=== PATIENT | female | born 1925 | race Caucasian/White ===

== ENCOUNTER 2016-11-06 14:13 | Emergency (ER) | payer OTHER ==
--- NOTE | 2016-11-06 15:48 | DIAGNOSTIC IMAGING REPORT ---
PROCEDURE: XR CHEST 2 VIEW INDICATION: FEVER TECHNIQUE: PA and lateral views. COMPARISON: None. FINDINGS: Left lower lobe infiltrate and effusion. Heart and mediastinum are normal. Thorax is normal. IMPRESSION: 1. Left lower infiltrate and effusion.
--- NOTE | 2016-11-06 20:41 | ED ORDER SUMMARY ---
..... Patient: KP FLORES OrderSheet [facility] VisitID: [id number] [address] [place] [address] 89y, F Registration Date/Time: 11/06/2016 ORDER SHEET Weight: 68.0 kg (estimated) Allergies: Aspirin, Azithromycin, Cephalexin, Egg/Pro, Morphine Sulfate, Penicillins, Sulfa Antibiotics GENERAL ORDERS: UA-Culture if indicated Urgent (14:37 11/06/2016 HOShaughnessy R.N. per protocol) (Ack 14:42 [facility] ER Tech1) (14:52 HOShaughnessy R.N.) Chest 2V Urgent (14:50 11/06/2016 Silvano Marques) (Ack 14:53 [facility] ER Tech1) (15:14 HOShaughnessy R.N.) CBC w Diff Urgent (14:51 11/06/2016 Silvano Marques) (Ack 14:53 [facility] ER Tech1) (15:14 HOShaughnessy R.N.) CMP Urgent (14:51 11/06/2016 Silvano Marques) (Ack 14:53 [facility] ER Tech1) (15:14 HOShaughnessy R.N.) Lactate, Serum Urgent (14:51 11/06/2016 Silvano Marques) (Ack 14:53 [facility] ER Tech1) (15:14 HOShaughnessy R.N.) Pulse oximeter (14:51 11/06/2016 Silvano Marques) (14:52 HOShaughnessy R.N.) Lactate, Serum Urgent (16:41 11/06/2016 Silvano Marques) (Ack 16:56 [facility] ER Tech1) (17:29 HOShaughnessy R.N.) Lactate, Serum Urgent (20:18 11/06/2016 Silvano Marques) (20:19 [facility] ER Tech1) MEDICATION ORDERS: Doxycycline Hyclate PO 100 mg (NOW) (16:15 11/06/2016 Silvano Marques) (18:15 EBonham) IV FLUIDS: IV NS : initial bolus 500 mL (1000 mL/hr), then none - for X1 (NOW) (14:50 11/06/2016 Silvano Marques) (15:15 Vernon Santacruz) IV NS : initial bolus 500 mL (1000 mL/hr), then none - for X1 (NOW) (17:48 11/06/2016 Silvano Marques) (18:32 Vernon Santacruz) ORDER SHEET NOTES: [Electronically signed by Florin Garvey R.N. (23:13 11/06/2016)] [Electronically signed by Rocky Hurt Dr. (03:03 11/08/2016)] [Electronically locked/signed by Florin Garvey R.N. (23:13 11/06/2016)]
--- NOTE | 2016-11-06 20:41 | ED NURSING NOTES ---
Clinical Report - [facility] [address] [place] [address] 11/06/2016 14:15 Patient: KP FLORES TRIAGE Triage time 1418 pm. Chief Complaint: FEVER and "NOT FEELING WELL" and FATIGUE. --14:19 Florin Garvey R.N. 14:18 11/06/16. BP: 170/115. HR: 83. RR: 16. O2 saturation: 90% on room air. Temp: 98.1 F (oral). --14:19 Florin Garvey R.N. 14:30 11/06/16. BP: 155/93. HR: 88. RR: 25. O2 saturation: 94% on room air. --14:34 Florin Garvey R.N. Alert. No acute distress. MIMI COMA SCORE: [place] Coma Scale: 14- eyes open spontaneously (4); best verbal response- disoriented (4); best motor response- obeys commands (6). --15:33 Florin Garvey R.N. Weight: 68 kg estimated. Height/Length: 62 inches Estimated. BMI: 27.4. --15:33 Florin Garvey R.N. Medications Tums Ultra 1000 Oral. --15:23 Florin Garvey R.N. Magnesium Oxide Oral. --15:23 Florin Garvey R.N. Potassium Chloride Oral. --15:23 Florin Garvey R.N. Atenolol Oral. --15:23 Florin Garvey R.N. Furosemide Oral. --15:23 Florin Garvey R.N. Glimepiride Oral. --15:23 Florin Garvey R.N. Lidocaine External. --15:24 Florin Garvey R.N. Lisinopril Oral. --15:24 Florin Garvey R.N. Lovastatin Oral. --15:24 Florin Garvey R.N. MetFORMIN HCl Oral. --15:25 Florin Garvey R.N. Multivitamins Oral. --15:25 Florin Garvey R.N. NIFEdipine Oral. --15:25 Florin Garvey R.N. Omeprazole Oral. --15:29 Florin Garvey R.N. Trimethoprim Oral. --15:29 Florin Garvey R.N. Vitamin B-12 Oral. --15:29 Florin Garvey R.N. Allergies Aspirin. Azithromycin. Cephalexin. Egg/Pro. --15:30 Florin Garvey R.N. Morphine Sulfate. Penicillins. Sulfa Antibiotics. --15:30 Florin Garvey R.N. History Arrived by EMS. Historian: patient. --14:19 Florin Garvey R.N. PAST MEDICAL HX: Diabetes mellitus. SOCIAL HX: Never smoker. Alcohol use. (no). History of drug use. (no). FALL RISK ASSESSMENT: Fall risk assessment completed. No fall risk identified. NUTRITIONAL RISK ASSESSMENT: The nutritional risk assessment revealed no deficiencies. FUNCTIONAL ASSESSMENT: Functional assessment: no impairments noted. LEARNING NEEDS ASSESSMENT: The learning needs assessment revealed no barriers. SKIN INTEGRITY ASSESSMENT: Skin integrity risk assessment completed. No skin integrity risk identified. --15:33 Florin Garvey R.N. PROBLEMS: Repeat Falls. Diabetes Mellitus Type 2. Chronic systolic heart failure. Changed Mental Status. UTI - Urinary Tract Infection. Hypokalemia. Prolapse uterus. Neuropathy. Hyponatremia. Hypertension. Anemia. Diabetes Mellitus. --15:32 Florin Garvey R.N. ADDITIONAL SURGERIES: Abdominal. --15:32 Florin Garvey R.N. PHYSICAL ASSESSMENT To room via stretcher. GENERAL / NEURO / PSYCH: Alert. Oriented X 4. Appears in no acute distress. She has had weakness. HEENT: Pupils equal, round and reactive to light. Mucous membranes are pink. RESPIRATORY: Respirations not labored. Chest nontender. Breath sounds within normal limits. CVS: Normal sinus rhythm noted. Capillary refill less than 2 seconds. Pulses within normal limits. GI / : Abdomen soft and nontender and normal bowel sounds. SKIN: Skin intact. Skin is warm and dry. Normal skin turgor. --15:34 Florin Garvey R.N. NURSING PROGRESS NOTES 15:14 11/06/2016 Site #1 started via IV in the right forearm with an 18g angiocath; one attempt. Blood drawn: rainbow set. Labeled in the presence of the patient and sent to the lab. --15:14 Florin Garvey R.N. 15:14 11/06/2016 Started IV Fluids IV NS (Saline); bolus of 500 mL wide open via site #1. Allergies verified and confirmed 5 rights. IV patency established. IV site checked: no pain, redness, or swelling. IV flushed thoroughly pre- and post-medication administration. --15:15 Florin Garvey R.N. ( Screams of "help" coming from patient room. Found patient out of bed standing in the middle of a pool or urine. Patient states that she needed to use the restroom badly and got out of bed to walk to the restroom. Assisted patient to the bed with the assistance of another RN. Patient instructed to use the call light when she needs to use the restroom.). --16:22 Florin Garvey R.N. ( Pt placed on the bedpan.). --16:52 Corine Caceres R.N. 18:00 11/06/16. BP: 155/68. HR: 81. RR: 16. O2 saturation: 100%. --18:01 Florin Garvey R.N. The patient is calm. Overall patient status is improved- she states feels better. --18:01 Florin Garvey R.N. 18:15 11/06/2016 DOXYCYCLINE HYCLATE PO 100 mg given. Allergies verified and confirmed 5 rights. --18:15 Windy Carrasco 18:32 11/06/2016 Started bag #1 500 mL IV Fluids IV NS (Saline); bolus of 500 mL over 1 hour(s) via site #1 via IV pump. Allergies verified and confirmed 5 rights. IV patency established. IV site checked: no pain, redness, or swelling. IV flushed thoroughly pre- and post-medication administration. --18:32 Florin Garvey R.N. The patient is calm and resting quietly. Overall patient status is improved- she states feels better. GENERAL / NEURO / PSYCH: Alert. Oriented X 4. RESPIRATORY: No respiratory distress. Breath sounds normal. GI / : Bowel sounds within normal limits. SKIN: Skin is warm and dry. --21:56 Florin Garvey R.N. 21:50 11/06/16. BP: 124/83. HR: 70. RR: 16. O2 saturation: 92%. Temp: 98.2 F. Pain level now: 0/10. --21:56 Florin Garvey R.N. DISPOSITION / DISCHARGE 22:26 11/06/2016 Site #1 removed upon discharge. Catheter intact. Pressure dressing applied. --22:26 Florin Garvey R.N. 22:26 11/06/2016 IV Fluids IV NS Discontinued: bag #1 completed. Total amount infused: 500 mL. IV patency established. IV site checked: no pain, redness, or swelling. IV flushed thoroughly. --22:26 Florin Garvey R.N. 22:26 11/06/2016 IV Fluids IV NS Discontinued: bag #2 completed. Total amount infused: 500 mL. IV patency established. IV site checked: no pain, redness, or swelling. IV flushed thoroughly. --22:26 Florin Garvey R.N. <<STRICKEN ENTRY-- The goals identified in the patient's plan of care were met. Fall risk assessment completed. Risk factors identified include patient medications, age greater than 65 years, history of fall and impairment of mobility. Fall interventions initiated. Patient placed on stretcher. The patient was discharged home and accompanied by spouse. She left the Emergency Department via private vehicle and on a stretcher. Patient driving. --22:27 Florin Garvey R.N. --END STRIKE>> Correction --22:29 Florin Garvey R.N. Departure time: 2228 PM. Transported via ambulance by EMS. ( Patient discharged to home via [facility] ambulance. Upon discharge patient alert and pleasantly confused which is her baseline. Patient respirations even and unlabored. Vital signs stable.). --22:29 Florin Garvey R.N. Departure time: 1031 PM. No learning barriers present. Ability to learn limited by poor comprehension and dementia; teaching performed. Learning barriers note: with medics who will perform teaching with . Reviewed medication(s) side effects, precautions, dosing and course information. Prescription(s) given to the roofing contractor. Reviewed fever care instructions. Written instructions provided in Romanian. Caregiver verbalized understanding (EMS). The patient was discharged home and accompanied by EMS. She left the Emergency Department via ambulance and on a stretcher. Driving (EMS). --22:31 Florin Garvey R.N. Condition at departure: improved. --23:12 Florni Garvey R.N. 22:14 11/06/16. BP: 140/60. HR: 80. RR: 16. O2 saturation: 95%. Temp: 98.1 F (oral). Pain level now: 0/10. --23:12 Florin Garvey R.N. Locked/Released at 11/06/2016 23:13 by Florin Garvey R.N.
--- NOTE | 2016-11-06 20:41 | ED CLINICAL REPORT ---
Clinical Report - Physicians/Mid Levels [facility] [address] [place] [address] 11/06/2016 14:15 Patient: KP FLORES Arrived- By ambulance. Historian- patient, EMS personnel and family. HISTORY OF PRESENT ILLNESS Chief Complaint: "NOT FEELING WELL". This started The past few days and is still present and worsening. She has had measured fever (subjective). It is not gone now. Fever (unsure). No muscle aches, chest pain or dyspnea. She has had loss of appetite, fatigue and decreased oral intake. Additional history - The patient has had contact with a sick individual. No recent hospitalization. No new medication recently administered. No history of HIV illness. No recent travel. No known exposure to an animal. Similar symptoms previously: None. Recent medical care: The patient was seen recently and hospitalized. REVIEW OF SYSTEMS No nausea or vomiting. All systems otherwise negative, except as recorded above. PAST HISTORY See nurses notes. Medications: Vitamin B-12 Oral. Trimethoprim Oral. Omeprazole Oral. NIFEdipine Oral. Multivitamins Oral. MetFORMIN HCl Oral. Lovastatin Oral. Lisinopril Oral. Lidocaine External. Glimepiride Oral. Furosemide Oral. Atenolol Oral. Potassium Chloride Oral. Magnesium Oxide Oral. Tums Ultra 1000 Oral. Allergies: Aspirin. Azithromycin. Cephalexin. Egg/Pro. Morphine Sulfate. Penicillins. Sulfa Antibiotics. SOCIAL HISTORY Never smoker. Not exposed to second-hand smoke at home. No alcohol use or drug use. No recent travel. Is a local resident. ADDITIONAL NOTES The nursing notes have been reviewed. PHYSICAL EXAM Vital Signs: 11/06/2016 14:18 BP: 170/115. HR: 83. RR: 16. O2 saturation: 90%. Temp: 98.1 F. Blood pressure normal. Oxygen saturation normal. Appearance: Alert. No acute distress. Eyes: Pupils equal, round and reactive to light. Eyes normal inspection. ENT: Ears normal. Nose normal. Pharynx normal. Uvula midline. Neck: Normal inspection. Neck supple. CVS: Normal heart rate and rhythm. Heart sounds normal. Pulses normal. Respiratory: No respiratory distress. Mild bilateral rhonchi present in the bases. Chest nontender. No rales or wheezes. Abdomen: Soft and nontender. Bowel sounds normal. No mass. Back: Normal inspection. Skin: Skin warm and dry. Normal skin color. No rash. Normal skin turgor. Extremities: Extremities exhibit normal ROM. Extremities nontender. Neuro: No motor deficit. No sensory deficit. (oriented to self and place). LABS, X-RAYS, AND EKG Chest X-ray: (PROCEDURE: XR CHEST 2 VIEW INDICATION: FEVER TECHNIQUE: PA and lateral views. COMPARISON: None. FINDINGS: Left lower lobe infiltrate and effusion. Heart and mediastinum are normal. Thorax is normal. IMPRESSION: 1. Left lower infiltrate and effusion.). Views: PA and lateral. The X-rays were independently viewed by me and interpreted by the radiologist. The X-rays were discussed with the radiologist (via pacs). Laboratory Tests: UA-Culture if indicated: (YESICA: 11/06/2016 14:29) ( [facility] 11/06/2016 15:07) Final results Test Result Flag Units (Reference) URINE COLOR YELLOW URINE APPEARANCE CLEAR URINE GLUCOSE 2+ (NEGATIVE) URINE BILIRUBIN NEGATIVE (NEGATIVE) URINE KETONE NEGATIVE (NEGATIVE) URINE SPECIFIC GRAVITY 1.010 (1.010-1.030) URINE PH 6.5 (5.0-8.0) URINE PROTEIN 1+ (NEGATIVE) URINE UROBILINOGEN 0.2 EU/dL (0.2-1.0) URINE NITRITE NEGATIVE (NEGATIVE) URINE BLOOD TRACE-LYSED (NEGATIVE) URINE LEUK ESTERASE NEGATIVE (NEGATIVE) URINE RBC 0-1 rbc/hpf (0-1) URINE WBC 5-10 wbc/hpf (0-1) URINE EPITHELIAL CELLS 1-3 EPI/hpf (0-5) URINE BACTERIA NONE SEEN (NONE SEEN) URINE COMMENT CULT NOT INDICATED URINE CULTURES ARE SET-UP BASED ON THE FOLLOWING CRITERIA:POSITIVE NITRITEPOSITIVE LEUKOCYTE ESTERASEGREATER THAN 10 WHITE BLOOD CELLSMODERATE (2+) OR GREATER BACTERIA CBC w Diff: (YESICA: 11/06/2016 15:09) ( [facility] 11/06/2016 15:31) Final results Test Result Flag Units (Reference) WHITE BLOOD COUNT 6.7 K/uL (4.5-11.5) RED BLOOD COUNT 4.63 M/uL (4.00-5.20) HEMOGLOBIN 12.0 gm/dL (12.0-16.0) HEMATOCRIT 37.4 % (36.0-46.0) MEAN CELL VOLUME 81 fL (80-100) MEAN CORPUSCULAR HGB 26 pg (26-34) MEAN CORPUSCULAR HGB CONC 32 g/dL (31-37) RED CELL DISTRIBUTION WIDTH 15.2 H % (11.6-14.8) PLATELET COUNT 287 K/uL (150-400) NEUTROPHIL % 75.8 H % (50-75) LYMPH % 13.7 L % (25-40) MONO % 6.7 % (3-14) EOSINOPHIL % 3.5 % (0-4) BASOPHIL % 0.3 % (0-2) Lactate, Serum: (YESICA: 11/06/2016 19:46) ( [facility] 11/06/2016 20:37) Final results Test Result Flag Units (Reference) LACTIC ACID 1.3 mmol/L (0.4-2.0) Lactate, Serum: (YESICA: 11/06/2016 15:00) ( [facility] 11/06/2016 17:43) Final results Test Result Flag Units (Reference) LACTIC ACID 2.1 H mmol/L (0.4-2.0) Lactate, Serum: (YESICA: 11/06/2016 15:09) ( [facility] 11/06/2016 15:46) Final results Test Result Flag Units (Reference) LACTIC ACID 2.8 H mmol/L (0.4-2.0) CMP: (YESICA: 11/06/2016 15:09) ( [facility] 11/06/2016 15:37) Final results Test Result Flag Units (Reference) GLUCOSE 267 H mg/dL (70-110) BUN 10 mg/dL (7-18) CREATININE 0.9 mg/dL (0.6-1.3) Estimated GFR >60 mL/min Estimated GFR- >60 mL/min Note: Persistent reduction over 3 months in eGFR<60 mL/min/1.73 m2 defines CKD. Patients with eGFR values>=60 mL/min/1.73 m2 may also have CKD if evidence ofpersistent proteinuria. Additional information may be foundat www.kidney.org. SODIUM 135 L mmol/L (136-145) POTASSIUM 3.9 mmol/L (3.5-5.1) CHLORIDE 96 L mmol/L (98-107) CARBON DIOXIDE 27 mmol/L (21-32) CALCIUM 8.6 mg/dL (8.5-10.1) TOTAL PROTEIN 7.5 g/dL (6.4-8.2) ALBUMIN 3.3 g/dL (3.3-5.0) BILIRUBIN, TOTAL 0.9 mg/dL (0.0-1.0) ALKALINE PHOSPHATASE 103 U/L (46-116) AST (SGOT) 9 L U/L (15-37) ALT (SGPT) 22 U/L (12-78) . PROGRESS AND PROCEDURES Course of Care: the patient is a pleasant 89-year-old female with complex past medical history presenting for evaluation of fever. The patient has recent history of decreased activity and decreased by mouth intake. Patient appears nontoxic at this time. Vital signs are otherwise unremarkable. Because the patient is over 65, will evaluate patient's current situation with urinalysis, chest x-ray, electrolytes, and Complete blood count. EMS had also reported patient with history of frequent urinary tract infections. Patient likely having change in mental status secondary to infectious etiology. We'll also be evaluating for any signs of metabolic derangement from current illness. Patient is otherwise nontoxic. Workup shows patient to haveabnormality on chest x-ray. Patient with left lower lobe pneumonia. Patient also with elevated lactic acid. The patient reports that she is feeling better. And would like to go home. The patient states that her can come to pick her up. Because the patient's lactic acid is elevated, we will recheck the lactic acid after the 500 cc of normal saline had been given. Patient likely dehydrated secondary to decreased by mouth intake. Second lactic acid is noted to be abnormal however borderline. Patient is a good outpatient candidate however would like to see resolution of the abnormal lactic acid. Was informed by nursing staff that the patient's lactic acid could only be drawn with the tourniquet up. Laboratory states that because the lactic could only be drawn with the tourniquet on, likely artificially elevated. There is concern about overloading patient with fluids however did not find any signs of fluid overload on examination. Patient has also only had 500 cc of fluid. We'll provide patient with another 500 cc of fluid and reevaluate with lactic acid. Lactic acid repeat is noted to be normal. Patient continues to be resting in bed in no acute distress. Patient is nontoxic. Vital signs are otherwise unremarkable. Patient is a good outpatient candidate. Discussed with patient and with significant other workup, diagnosis, home care, follow-up, and return precautions. All questions answered. The patient expressed understanding of these instructions and was agreeable to them. Disposition: Discharged. Condition: good. CLINICAL IMPRESSION 11/06/2016 18:00 BP: 155/68. HR: 81. RR: 16. O2 saturation: 100%. Blood pressure normal. Oxygen saturation normal. acute lactic acidosis, resolved dehydration, acute pneumonia, acute left lower lobe. INSTRUCTIONS Warnings: GENERAL WARNINGS: Return or contact your physician immediately if your condition worsens or changes unexpectedly, if not improving as expected, or if other problems arise. Specifically return if pain, vomiting, bleeding, breathing difficulty or fever. Your Current Medications: CONTINUE TAKING THE FOLLOWING MEDICATIONS: Atenolol Oral. Furosemide Oral. Glimepiride Oral. Lidocaine External. Lisinopril Oral. Lovastatin Oral. Magnesium Oxide Oral. MetFORMIN HCl Oral. Multivitamins Oral. NIFEdipine Oral. Omeprazole Oral. Potassium Chloride Oral. Trimethoprim Oral. Tums Ultra 1000 Oral. Vitamin B-12 Oral. Prescription Medications: Doxycycline 100 mg: Take 1 capsule orally every 12 hours for 10 days. No refill. (recheck today's concerns) Follow-up: Return to the emergency department as needed. Follow up with your doctor in two days. Reason for referral: recheck today's concerns. Summary of care provided to patient via paper. Screening today revealed the patient's blood pressure to be in the hypertensive range. Blood pressure screening was not performed during this visit because the patient has an active diagnosis of hypertension. The patient should follow up with a primary care provider for blood pressure management. Understanding of the discharge instructions verbalized by patient. Discharge instructions reviewed (spouse). (Electronically signed by Rocky Hurt Dr. 11/08/2016 3:03)
--- NOTE | 2016-11-06 20:41 | ED ORDER SUMMARY ---
..... Patient: KP FLORES OrderSheet [facility] VisitID: [id number] [address] [place] [address] 89y, F Registration Date/Time: 11/06/2016 ORDER SHEET Weight: 68.0 kg (estimated) Allergies: Aspirin, Azithromycin, Cephalexin, Egg/Pro, Morphine Sulfate, Penicillins, Sulfa Antibiotics GENERAL ORDERS: UA-Culture if indicated Urgent (14:37 11/06/2016 HOShaughnessy R.N. per protocol) (Ack 14:42 [facility] ER Tech1) (14:52 HOShaughnessy R.N.) Chest 2V Urgent (14:50 11/06/2016 Silvano Marques) (Ack 14:53 [facility] ER Tech1) (15:14 HOShaughnessy R.N.) CBC w Diff Urgent (14:51 11/06/2016 Silvano Marques) (Ack 14:53 [facility] ER Tech1) (15:14 HOShaughnessy R.N.) CMP Urgent (14:51 11/06/2016 Silvano Marques) (Ack 14:53 [facility] ER Tech1) (15:14 HOShaughnessy R.N.) Lactate, Serum Urgent (14:51 11/06/2016 Silvano Marques) (Ack 14:53 [facility] ER Tech1) (15:14 HOShaughnessy R.N.) Pulse oximeter (14:51 11/06/2016 Silvano Marques) (14:52 HOShaughnessy R.N.) Lactate, Serum Urgent (16:41 11/06/2016 Silvano Marques) (Ack 16:56 [facility] ER Tech1) (17:29 HOShaughnessy R.N.) Lactate, Serum Urgent (20:18 11/06/2016 Silvano Marques) (20:19 [facility] ER Tech1) MEDICATION ORDERS: Doxycycline Hyclate PO 100 mg (NOW) (16:15 11/06/2016 Silvano Marques) (18:15 EBonham) IV FLUIDS: IV NS : initial bolus 500 mL (1000 mL/hr), then none - for X1 (NOW) (14:50 11/06/2016 Silvano Marques) (15:15 Vernon Santacruz) IV NS : initial bolus 500 mL (1000 mL/hr), then none - for X1 (NOW) (17:48 11/06/2016 Silvano Marques) (18:32 Vernon Santacruz) ORDER SHEET NOTES: [Electronically signed by Florin Garvey R.N. (23:13 11/06/2016)] [Electronically signed by Rocky Hurt Dr. (03:03 11/08/2016)] [Electronically locked/signed by Florin Garvey R.N. (23:13 11/06/2016)]
--- NOTE | 2016-11-08 03:04 | ED DISCHARGE INSTRUCTIONS ---
Patient: KP FLORES General Instructions [facility] VisitID: [id number] [place] [address] 89y, F Registration Date/Time: 11/06/2016 11/06/2016 18:00 BP: 155/68. HR: 81. RR: 16. O2 saturation: 100%. Blood pressure normal. Oxygen saturation normal. acute lactic acidosis, resolved dehydration, acute pneumonia, acute left lower lobe. INSTRUCTIONS Warnings: GENERAL WARNINGS: Return or contact your physician immediately if your condition worsens or changes unexpectedly, if not improving as expected, or if other problems arise. Specifically return if pain, vomiting, bleeding, breathing difficulty or fever. Your Current Medications: CONTINUE TAKING THE FOLLOWING MEDICATIONS: Atenolol Oral. Furosemide Oral. Glimepiride Oral. Lidocaine External. Lisinopril Oral. Lovastatin Oral. Magnesium Oxide Oral. MetFORMIN HCl Oral. Multivitamins Oral. NIFEdipine Oral. Omeprazole Oral. Potassium Chloride Oral. Trimethoprim Oral. Tums Ultra 1000 Oral. Vitamin B-12 Oral. Prescription Medications: Doxycycline 100 mg: Take 1 capsule orally every 12 hours for 10 days. No refill. (recheck today's concerns) Follow-up: Return to the emergency department as needed. Follow up with your doctor in two days. Reason for referral: recheck today's concerns. Summary of care provided to patient via paper. Screening today revealed the patient's blood pressure to be in the hypertensive range. Blood pressure screening was not performed during this visit because the patient has an active diagnosis of hypertension. The patient should follow up with a primary care provider for blood pressure management. Understanding of the discharge instructions verbalized by patient. Discharge instructions reviewed (spouse). ADDITIONAL INFORMATION Doxycycline Monohydrate Oral tablet What is this medicine? DOXYCYCLINE (dox scott jason) is a tetracycline antibiotic. It kills certain bacteria or stops their growth. It is used to treat many kinds of infections, like dental, skin, respiratory, and urinary tract infections. It also treats acne, Lyme disease, malaria, and certain sexually transmitted infections. How should I use this medicine? Take this medicine by mouth with a full glass of water. Follow the directions on the prescription label. It is best to take this medicine without food, but if it upsets your stomach take it with food. Take your medicine at regular intervals. Do not take your medicine more often than directed. Take all of your medicine as directed even if you think you are better. Do not skip doses or stop your medicine early. Talk to your labor trainer regarding the use of this medicine in children. Special care may be needed. While this drug may be prescribed for children as young as 8 years old for selected conditions, precautions do apply. What side effects may I notice from receiving this medicine? Side effects that you should report to your doctor or health senior care assistant as soon as possible: allergic reactions like skin rash, itching or hives, swelling of the face, lips, or tongue difficulty breathing fever itching in the rectal or genital area pain on swallowing redness, blistering, peeling or loosening of the skin, including inside the mouth severe stomach pain or cramps unusual bleeding or bruising unusually weak or tired yellowing of the eyes or skin Side effects that usually do not require medical attention (report to your doctor or health senior care assistant if they continue or are bothersome): diarrhea loss of appetite nausea, vomiting What may interact with this medicine? antacids barbiturates control pills bismuth subsalicylate carbamazepine methoxyflurane other antibiotics phenytoin vitamins that contain iron warfarin What if I miss a dose? If you miss a dose, take it as soon as you can. If it is almost time for your next dose, take only that dose. Do not take double or extra doses. Where should I keep my medicine? Keep out of the reach of children. Store at room temperature, below 30 degrees C (86 degrees F). Protect from light. Keep container tightly closed. Throw away any unused medicine after the expiration date. Taking this medicine after the expiration date can make you seriously ill. What should I tell my health care provider before I take this medicine? They need to know if you have any of these conditions: liver disease long exposure to sunlight like working outdoors stomach problems like colitis an unusual or allergic reaction to doxycycline, tetracycline antibiotics, other medicines, foods, dyes, or preservatives or trying to get breast-feeding What should I watch for while using this medicine? Tell your doctor or health senior care assistant if your symptoms do not improve. Do not treat diarrhea with over the counter products. Contact your doctor if you have diarrhea that lasts more than 2 days or if it is severe and watery. Do not take this medicine just before going to bed. It may not dissolve properly when you lay down and can cause pain in your throat. Drink plenty of fluids while taking this medicine to also help reduce irritation in your throat. This medicine can make you more sensitive to the sun. Keep out of the sun. If you cannot avoid being in the sun, wear protective clothing and use sunscreen. Do not use sun lamps or tanning beds/booths. control pills may not work properly while you are taking this medicine. Talk to your doctor about using an extra method of control. If you are being treated for a sexually transmitted infection, avoid sexual contact until you have finished your treatment. Your sexual partner may also need treatment. Avoid antacids, aluminum, calcium, magnesium, and iron products for 4 hours before and 2 hours after taking a dose of this medicine. If you are using this medicine to prevent malaria, you should still protect yourself from contact with mosquitos. Stay in screened-in areas, use mosquito nets, keep your body covered, and use an insect repellent. You have been given the following additional information: Doxycycline Monohydrate Oral tablet (Electronically signed by Rocky Hurt Dr. 11/08/2016 3:03)
--- NOTE | 2016-11-08 03:04 | ED MAR SUMMARY ---
..... Medication Administration Record [facility] [address] [place] [address] Patient: KP FLORES Visit ID: [id number] 89y, F Weight: 68.0 kg Height/Length: 62 in BMI: 27.4 ALLERGIES: Aspirin, Azithromycin, Cephalexin, Egg/Pro, Morphine Sulfate, Penicillins, Sulfa Antibiotics Start 15:14 11/06/2016 Florin Garvey R.N., Stop 22:26 11/06/2016 Florin Garvey R.N. Medication Administered: IV NS (SALINE), Dose: IV Fluids, Bolus: 500 mL wide open, Site: #1 right forearm. Medication Ordered: IV NS : initial bolus 500 mL (1000 mL/hr), then none - for X1 (NOW). Given 18:15 11/06/2016 Windy Carrasco, Medication Administered: DOXYCYCLINE HYCLATE [PO], Dose: 100 mg PO. Medication Ordered: Doxycycline Hyclate PO 100 mg (NOW). Start 18:32 11/06/2016 Florin Garvey R.N., Stop 22:26 11/06/2016 Florin Garvey R.N. Medication Administered: IV NS (SALINE), Dose: IV Fluids, Bolus: 500 mL over 1 hour(s), Dispensed: 500 mL bag, Site: #1 right forearm. Medication Ordered: IV NS : initial bolus 500 mL (1000 mL/hr), then none - for X1 (NOW).
--- NOTE | 2016-11-08 03:04 | ED MED RECONCILIATION SUMMARY ---
Patient: KP FLORES Medication Reconciliation Report [facility] VisitID: [id number] [address] [place] [address] 89y, F Registration Date/Time: 11/06/2016 Weight: 68.0 kg Height/Length: 62 in. BMI: 27.4 ALLERGIES: Aspirin, Azithromycin, Cephalexin, Egg/Pro, Morphine Sulfate, Penicillins, Sulfa Antibiotics The patient's Home Medications are listed below: CONTINUE TAKING THE FOLLOWING MEDICATIONS: Atenolol Oral Furosemide Oral Glimepiride Oral Lidocaine External Lisinopril Oral Lovastatin Oral Magnesium Oxide Oral MetFORMIN HCl Oral Multivitamins Oral NIFEdipine Oral Omeprazole Oral Potassium Chloride Oral Trimethoprim Oral Tums Ultra 1000 Oral Vitamin B-12 Oral The source(s) of the original Home Medication information: Not obtained. The following Medications were given to the patient in the Emergency Department: IV NS IV Fluids bolus 500 mL wide open, administered: 11/06/2016 3:14:00 PM DOXYCYCLINE HYCLATE [PO] PO 100 mg, administered: 11/06/2016 6:15:00 PM IV NS IV Fluids bolus 500 mL over 1 hour(s), administered: 11/06/2016 6:32:00 PM The following Medications were prescribed to the patient: Doxycycline 100 mg: Take 1 capsule orally every 12 hours for 10 days. No refill.(recheck today's concerns) -- Rocky Hurt Dr.
--- NOTE | 2016-11-08 03:04 | ED MED RECONCILIATION SUMMARY ---
Patient: KP FLORES Medication Reconciliation Report [facility] VisitID: [id number] [address] [place] [address] 89y, F Registration Date/Time: 11/06/2016 Weight: 68.0 kg Height/Length: 62 in. BMI: 27.4 ALLERGIES: Aspirin, Azithromycin, Cephalexin, Egg/Pro, Morphine Sulfate, Penicillins, Sulfa Antibiotics The patient's Home Medications are listed below: CONTINUE TAKING THE FOLLOWING MEDICATIONS: Atenolol Oral Furosemide Oral Glimepiride Oral Lidocaine External Lisinopril Oral Lovastatin Oral Magnesium Oxide Oral MetFORMIN HCl Oral Multivitamins Oral NIFEdipine Oral Omeprazole Oral Potassium Chloride Oral Trimethoprim Oral Tums Ultra 1000 Oral Vitamin B-12 Oral The source(s) of the original Home Medication information: Not obtained. The following Medications were given to the patient in the Emergency Department: IV NS IV Fluids bolus 500 mL wide open, administered: 11/06/2016 3:14:00 PM DOXYCYCLINE HYCLATE [PO] PO 100 mg, administered: 11/06/2016 6:15:00 PM IV NS IV Fluids bolus 500 mL over 1 hour(s), administered: 11/06/2016 6:32:00 PM The following Medications were prescribed to the patient: Doxycycline 100 mg: Take 1 capsule orally every 12 hours for 10 days. No refill.(recheck today's concerns) -- Rocky Hurt Dr.
--- NOTE | 2016-11-08 03:04 | ED DISCHARGE INSTRUCTIONS ---
Patient: KP FLORES General Instructions [facility] VisitID: [id number] [place] [address] 89y, F Registration Date/Time: 11/06/2016 11/06/2016 18:00 BP: 155/68. HR: 81. RR: 16. O2 saturation: 100%. Blood pressure normal. Oxygen saturation normal. acute lactic acidosis, resolved dehydration, acute pneumonia, acute left lower lobe. INSTRUCTIONS Warnings: GENERAL WARNINGS: Return or contact your physician immediately if your condition worsens or changes unexpectedly, if not improving as expected, or if other problems arise. Specifically return if pain, vomiting, bleeding, breathing difficulty or fever. Your Current Medications: CONTINUE TAKING THE FOLLOWING MEDICATIONS: Atenolol Oral. Furosemide Oral. Glimepiride Oral. Lidocaine External. Lisinopril Oral. Lovastatin Oral. Magnesium Oxide Oral. MetFORMIN HCl Oral. Multivitamins Oral. NIFEdipine Oral. Omeprazole Oral. Potassium Chloride Oral. Trimethoprim Oral. Tums Ultra 1000 Oral. Vitamin B-12 Oral. Prescription Medications: Doxycycline 100 mg: Take 1 capsule orally every 12 hours for 10 days. No refill. (recheck today's concerns) Follow-up: Return to the emergency department as needed. Follow up with your doctor in two days. Reason for referral: recheck today's concerns. Summary of care provided to patient via paper. Screening today revealed the patient's blood pressure to be in the hypertensive range. Blood pressure screening was not performed during this visit because the patient has an active diagnosis of hypertension. The patient should follow up with a primary care provider for blood pressure management. Understanding of the discharge instructions verbalized by patient. Discharge instructions reviewed (spouse). ADDITIONAL INFORMATION Doxycycline Monohydrate Oral tablet What is this medicine? DOXYCYCLINE (dox scott jason) is a tetracycline antibiotic. It kills certain bacteria or stops their growth. It is used to treat many kinds of infections, like dental, skin, respiratory, and urinary tract infections. It also treats acne, Lyme disease, malaria, and certain sexually transmitted infections. How should I use this medicine? Take this medicine by mouth with a full glass of water. Follow the directions on the prescription label. It is best to take this medicine without food, but if it upsets your stomach take it with food. Take your medicine at regular intervals. Do not take your medicine more often than directed. Take all of your medicine as directed even if you think you are better. Do not skip doses or stop your medicine early. Talk to your theatrical variety agent regarding the use of this medicine in children. Special care may be needed. While this drug may be prescribed for children as young as 8 years old for selected conditions, precautions do apply. What side effects may I notice from receiving this medicine? Side effects that you should report to your doctor or health urgent care physician as soon as possible: allergic reactions like skin rash, itching or hives, swelling of the face, lips, or tongue difficulty breathing fever itching in the rectal or genital area pain on swallowing redness, blistering, peeling or loosening of the skin, including inside the mouth severe stomach pain or cramps unusual bleeding or bruising unusually weak or tired yellowing of the eyes or skin Side effects that usually do not require medical attention (report to your doctor or health urgent care physician if they continue or are bothersome): diarrhea loss of appetite nausea, vomiting What may interact with this medicine? antacids barbiturates control pills bismuth subsalicylate carbamazepine methoxyflurane other antibiotics phenytoin vitamins that contain iron warfarin What if I miss a dose? If you miss a dose, take it as soon as you can. If it is almost time for your next dose, take only that dose. Do not take double or extra doses. Where should I keep my medicine? Keep out of the reach of children. Store at room temperature, below 30 degrees C (86 degrees F). Protect from light. Keep container tightly closed. Throw away any unused medicine after the expiration date. Taking this medicine after the expiration date can make you seriously ill. What should I tell my health care provider before I take this medicine? They need to know if you have any of these conditions: liver disease long exposure to sunlight like working outdoors stomach problems like colitis an unusual or allergic reaction to doxycycline, tetracycline antibiotics, other medicines, foods, dyes, or preservatives or trying to get breast-feeding What should I watch for while using this medicine? Tell your doctor or health urgent care physician if your symptoms do not improve. Do not treat diarrhea with over the counter products. Contact your doctor if you have diarrhea that lasts more than 2 days or if it is severe and watery. Do not take this medicine just before going to bed. It may not dissolve properly when you lay down and can cause pain in your throat. Drink plenty of fluids while taking this medicine to also help reduce irritation in your throat. This medicine can make you more sensitive to the sun. Keep out of the sun. If you cannot avoid being in the sun, wear protective clothing and use sunscreen. Do not use sun lamps or tanning beds/booths. control pills may not work properly while you are taking this medicine. Talk to your doctor about using an extra method of control. If you are being treated for a sexually transmitted infection, avoid sexual contact until you have finished your treatment. Your sexual partner may also need treatment. Avoid antacids, aluminum, calcium, magnesium, and iron products for 4 hours before and 2 hours after taking a dose of this medicine. If you are using this medicine to prevent malaria, you should still protect yourself from contact with mosquitos. Stay in screened-in areas, use mosquito nets, keep your body covered, and use an insect repellent. You have been given the following additional information: Doxycycline Monohydrate Oral tablet (Electronically signed by Rocky Hurt Dr. 11/08/2016 3:03)
--- NOTE | 2016-11-08 03:04 | ED MAR SUMMARY ---
..... Medication Administration Record [facility] [address] [place] [address] Patient: KP FLORES Visit ID: [id number] 89y, F Weight: 68.0 kg Height/Length: 62 in BMI: 27.4 ALLERGIES: Aspirin, Azithromycin, Cephalexin, Egg/Pro, Morphine Sulfate, Penicillins, Sulfa Antibiotics Start 15:14 11/06/2016 Florin Garvey R.N., Stop 22:26 11/06/2016 Florin Garvey R.N. Medication Administered: IV NS (SALINE), Dose: IV Fluids, Bolus: 500 mL wide open, Site: #1 right forearm. Medication Ordered: IV NS : initial bolus 500 mL (1000 mL/hr), then none - for X1 (NOW). Given 18:15 11/06/2016 Windy Carrasco, Medication Administered: DOXYCYCLINE HYCLATE [PO], Dose: 100 mg PO. Medication Ordered: Doxycycline Hyclate PO 100 mg (NOW). Start 18:32 11/06/2016 Florin Garvey R.N., Stop 22:26 11/06/2016 Florin Garvey R.N. Medication Administered: IV NS (SALINE), Dose: IV Fluids, Bolus: 500 mL over 1 hour(s), Dispensed: 500 mL bag, Site: #1 right forearm. Medication Ordered: IV NS : initial bolus 500 mL (1000 mL/hr), then none - for X1 (NOW).
== END 2016-11-06 22:25 | disposition home or self-care (01) ==
LOC: ED SRH 14:13
DX: E87.2 Acidosis (principal); E86.0 Dehydration; J18.9 Pneumonia, unspecified organism; E11.9 Type 2 diabetes mellitus without complications; I10 Essential (primary) hypertension; Z88.0 Allergy status to penicillin; Z88.2 Allergy status to sulfonamides; Z79.899 Other long term (current) drug therapy; Z88.1 Allergy status to other antibiotic agents; Z88.5 Allergy status to narcotic agent
CPT/HCPCS: 90004; 90100; 92031; 95059